=== PATIENT | female | born 1945 | race Caucasian/White ===

== ENCOUNTER 2016-08-13 06:35 | Inpatient (IN) | payer OTHER ==
[~2016-08-13] VITALS: Ht 160 cm; Wt 72.6 kg
[~2016-08-13 06:35] MED LIST: ALTACE5 MG PO; CO Q-10100 MG PO; CORICIDIN HBP1 EAC5 PO; EVISTA60 MG PO; FEOSOL325 MG PO; GLUCOTROL XL2.5 MG PO; GLUCOTROL XL5 MG PO; HYDROCHLOROTHIA25 MG PO; LO-DOSE ASPIRIN81 M2 PO; MULTIPLE VITAM1 EAC1 PO; OSTEO BI-FLEX1 EAC1 PO; PRILOSEC20 MG PO; SYNTHROID125 MCG PO; ZOCOR10 MG PO
[2016-08-13 07:53] VITALS: BP 152/76
[2016-08-13 08:43] LABS: POINT-OF-CARE METER ID UU14174212
[2016-08-13 11:55] LABS: POINT-OF-CARE METER ID UU13113675
[2016-08-13 13:23] VITALS: BP 165/71
[2016-08-13 15:50] VITALS: BP 137/66
[2016-08-13 16:18] LABS: POINT-OF-CARE METER ID UU13113712
[2016-08-13 17:45] VITALS: BP 136/63
[2016-08-13 19:57] VITALS: BP 125/59
[2016-08-13 21:58] LABS: POINT-OF-CARE METER ID UU13113712
[2016-08-14 00:30] VITALS: BP 132/61
[2016-08-14 03:37] VITALS: BP 138/80
[2016-08-14 08:01] LABS: POINT-OF-CARE METER ID UU13113712
[2016-08-14 08:29] VITALS: BP 126/55
[2016-08-14] MEDS ORDERED: OXYCODONE HCL5 MG PO (08:40)
[2016-08-14] MEDS ORDERED: XARELTO10 MG PO (08:40)
[2016-08-14 08:56] LABS: HEMATOCRIT 33.9 % (36.0-46.0); MCV 87.6 FL (83-99)
[2016-08-14 09:04] LABS: CHLORIDE 101 mEq/L (99-109); POTASSIUM 3.7 mEq/L (3.7-5.4); SODIUM 136 mEq/L (136-147)
[2016-08-14 09:05] LABS: GLUCOSE 168 mg/dL (70-99)
[2016-08-14 09:07] LABS: ANION GAP 10 MEQ/L (2-14)
[2016-08-14 09:09] LABS: GFR ESTIMATE (CALCULATED) > 59 mL/min/
[2016-08-14 09:10] LABS: UREA NITROGEN (BUN) 12 mg/dL (9-23)
[2016-08-14 11:22] LABS: POINT-OF-CARE METER ID UU13113712
[2016-08-14 11:43] VITALS: BP 138/67
[2016-08-14 15:42] VITALS: BP 161/69
[2016-08-14 16:24] LABS: POINT-OF-CARE METER ID UU13113712
[2016-08-14 19:49] VITALS: BP 148/66
[2016-08-14 22:04] LABS: POINT-OF-CARE METER ID UU13113712
[2016-08-15] VITALS: BP 131/60
[2016-08-15 04:10] VITALS: BP 132/63
[2016-08-15 05:25] LABS: HEMATOCRIT 31.1 % (36.0-46.0); MCV 87.6 FL (83-99)
[2016-08-15 07:33] LABS: POINT-OF-CARE METER ID UU13113712
[2016-08-15 08:07] VITALS: BP 142/63
[2016-08-15 11:36] LABS: POINT-OF-CARE METER ID UU13113712
[2016-08-15 12:15] VITALS: BP 104/53
[2016-08-15 15:20] VITALS: BP 119/61
[2016-08-15 16:31] LABS: POINT-OF-CARE METER ID UU13113712
== END 2016-08-15 16:45 | DRG 470 ==
LOC: 2SOUTH → 3WEST 12:47
PROVIDERS: Orthopaedic Surgery
PROC: 0SRC0J9 Replacement of Right Knee Joint with Synthetic Substitute, Cemented, Open Approach (ICD-10-PCS; principal; 2016-08-13)
DX: M17.11 Unilateral primary osteoarthritis, right knee (principal); M25.561 Pain in right knee; Z88.1 Allergy status to other antibiotic agents; Z88.0 Allergy status to penicillin
CPT/HCPCS: 80048; 82948; 85014; 85018; C1713; J0131; J0690; J1815; J1885; J2250; J2405; J2795; J3010; J7030; J7050; J7120; L1820; S0020